=== PATIENT | female | born 1990 | race American Indian/Alaskan Native ===

== ENCOUNTER 2019-06-17 15:56 | Emergency (ER) | payer OTHER ==
--- NOTE | 2019-06-17 16:09 | Emergency Department Report ---
Blank Doc - Documentation Documentation: This is a 28-year-old female that presents with vaginal bleeding. This initial assessment/diagnostic orders/clinical plan/treatment(s) is/are subject to change based on patient's health status, clinical progression and re- assessment by fellow clinical providers in the ED. Further treatment and workup at subsequent clinical providers discretion. Patient/guardians urged not to elope from the ED as their condition may be serious if not clinically assessed and managed. Initial orders include: 1- Patient sent to [facility] for further evaluation and treatment 2- UA 3- labs
[2019-06-17 16:10] VITALS: BP 157/97
[2019-06-17 16:20] LABS: Hematocrit 38.1 % (30.3-42.9); Hemoglobin 13.3 gm/dl (10.1-14.3); Mean Corpuscular HGB Conc 35 % (30-34); Mean Corpuscular Volume 79 fl (79-97); Platelet Count 273 K/mm3 (140-440); Red Blood Count 4.82 M/mm3 (3.65-5.03)
[2019-06-17 16:29] LABS: Bilirubin,Urine NEG (Negative); Blood,Urine LG (Negative); Color,Urine Red (Yellow); Urobilinogen,Urine < 2.0 mg/dL (<2.0)
[2019-06-17 16:42] LABS: RBC,Urine > 182.0 /HPF (0.0-6.0)
--- NOTE | 2019-06-17 17:14 | Emergency Department Report ---
ED Female HPI - General Chief complaint: Urogenital-Female Stated complaint: POSS / BLEEDING CLOTS Time Seen by Provider: 06/17/19 16:08 Source: patient Mode of arrival: Ambulatory Limitations: No Limitations - History of Present Illness Initial comments: This is a 28-year-old female who presents to ED complaining of vaginal bleeding that started this morning. Patient states last menstrual period was April and she did not have a cycle in May. Patient also states that she had her nexplanon taken out in March. Complaint: vaginal bleeding - Related Data Previous Rx's Medication Instructions Recorded Last Taken Type Ibuprofen [Motrin 800 MG tab] 800 mg PO TID #30 tablet 06/17/19 Unknown Rx Allergies Allergy/AdvReac Type Severity Reaction Status Date / Time No Known Allergies Allergy Unverified 06/17/19 16:10 ED Review of Systems ROS: Stated complaint: POSS / BLEEDING CLOTS Other details as noted in HPI Comment: All other systems reviewed and negative ED Past Medical Hx - Social History Smoking Status: Never Smoker Substance Use Type: None - Medications Home Medications: Home Medications Medication Instructions Recorded Confirmed Last Taken Type Ibuprofen [Motrin 800 MG tab] 800 mg PO TID #30 tablet 06/17/19 Unknown Rx ED Physical Exam - General Limitations: No Limitations General appearance: alert, in no apparent distress - Head Head exam: Present: atraumatic, normocephalic - Eye Eye exam: Present: normal appearance - ENT ENT exam: Present: mucous membranes moist - Neck Neck exam: Present: normal inspection - Respiratory Respiratory exam: Present: normal lung sounds bilaterally. Absent: respiratory distress - Cardiovascular Cardiovascular Exam: Present: regular rate, normal rhythm. Absent: systolic murmur, diastolic murmur, rubs, gallop - GI/Abdominal GI/Abdominal exam: Present: soft, normal bowel sounds. Absent: distended, tenderness, guarding, mass - Extremities Exam Extremities exam: Present: normal inspection - Back Exam Back exam: Present: normal inspection - Neurological Exam Neurological exam: Present: alert, oriented X3 - Psychiatric Psychiatric exam: Present: normal affect, normal mood - Skin Skin exam: Present: warm, dry, intact, normal color. Absent: rash ED Course Vital Signs 06/17/19 06/17/19 06/17/19 16:08 18:08 18:34 Temperature 98 F Pulse Rate 80 Respiratory 20 16 16 Rate Blood Pressure 157/97 O2 Sat by Pulse 100 Oximetry ED Medical Decision Making - Lab Data Result diagrams: 06/17/19 16:11 Laboratory Last Values WBC 8.8 K/mm3 (4.5-11.0) 06/17/19 16:11 RBC 4.82 M/mm3 (3.65-5.03) 06/17/19 16:11 Hgb 13.3 gm/dl (10.1-14.3) 06/17/19 16:11 Hct 38.1 % (30.3-42.9) 06/17/19 16:11 MCV 79 fl (79-97) 06/17/19 16:11 MCH 28 pg (28-32) 06/17/19 16:11 MCHC 35 % (30-34) H 06/17/19 16:11 RDW 14.0 % (13.2-15.2) 06/17/19 16:11 Plt Count 273 K/mm3 (140-440) 06/17/19 16:11 Lymph # Yacht Hand 06/17/19 16:11 Add Manual Diff Complete 06/17/19 16:11 Total Counted 100 06/17/19 16:11 Seg Neuts % (Manual) 31.0 % (40.0-70.0) L 06/17/19 16:11 0 % 06/17/19 16:11 66.0 % (13.4-35.0) H 06/17/19 16:11 Reactive Lymphs % (Man) 0 % 06/17/19 16:11 3.0 % (0.0-7.3) 06/17/19 16:11 0 % (0.0-4.3) 06/17/19 16:11 0 % (0.0-1.8) 06/17/19 16:11 0 % 06/17/19 16:11 0 % 06/17/19 16:11 0 % 06/17/19 16:11 0 % 06/17/19 16:11 Nucleated RBC % Not Reportable 06/17/19 16:11 Seg Neutrophils # Man 2.7 K/mm3 (1.8-7.7) 06/17/19 16:11 Band Neutrophils # 0.0 K/mm3 06/17/19 16:11 5.8 K/mm3 (1.2-5.4) H 06/17/19 16:11 Abs React Lymphs (Man) 0.0 K/mm3 06/17/19 16:11 0.3 K/mm3 (0.0-0.8) 06/17/19 16:11 0.0 K/mm3 (0.0-0.4) 06/17/19 16:11 0.0 K/mm3 (0.0-0.1) 06/17/19 16:11 0.0 K/mm3 06/17/19 16:11 0.0 K/mm3 06/17/19 16:11 0.0 K/mm3 06/17/19 16:11 Blast Cells # 0.0 K/mm3 06/17/19 16:11 WBC Morphology Not Reportable 06/17/19 16:11 Hypersegmented Neuts Not Reportable 06/17/19 16:11 Hyposegmented Neuts Not Reportable 06/17/19 16:11 Hypogranular Neuts Not Reportable 06/17/19 16:11 Not Reportable 06/17/19 16:11 Not Reportable 06/17/19 16:11 Not Reportable 06/17/19 16:11 Not Reportable 06/17/19 16:11 Not Reportable 06/17/19 16:11 Not Reportable 06/17/19 16:11 Consistent w auto 06/17/19 16:11 Not Reportable 06/17/19 16:11 Plt Clumps, EDTA Not Reportable 06/17/19 16:11 Not Reportable 06/17/19 16:11 Not Reportable 06/17/19 16:11 Not Reportable 06/17/19 16:11 Plt Morphology Comment Not Reportable 06/17/19 16:11 RBC Morphology Not Reportable 06/17/19 16:11 Dimorphic RBCs Not Reportable 06/17/19 16:11 Not Reportable 06/17/19 16:11 Not Reportable 06/17/19 16:11 Not Reportable 06/17/19 16:11 1+ 06/17/19 16:11 1+ 06/17/19 16:11 Not Reportable 06/17/19 16:11 Not Reportable 06/17/19 16:11 Not Reportable 06/17/19 16:11 Not Reportable 06/17/19 16:11 Not Reportable 06/17/19 16:11 Not Reportable 06/17/19 16:11 Not Reportable 06/17/19 16:11 Not Reportable 06/17/19 16:11 Not Reportable 06/17/19 16:11 Not Reportable 06/17/19 16:11 Not Reportable 06/17/19 16:11 Not Reportable 06/17/19 16:11 Not Reportable 06/17/19 16:11 Not Reportable 06/17/19 16:11 Acanthocytes (Spur) Not Reportable 06/17/19 16:11 Rouleaux Not Reportable 06/17/19 16:11 Not Reportable 06/17/19 16:11 Not Reportable 06/17/19 16:11 Not Reportable 06/17/19 16:11 Not Reportable 06/17/19 16:11 Hem Pathologist Commnt No 06/17/19 16:11 HCG, Qual Negative (Negative) 06/17/19 16:11 Red (Yellow) 06/17/19 16:11 Cloudy (Clear) 06/17/19 16:11 6.0 (5.0-7.0) 06/17/19 16:11 Ur Specific [place] 1.019 (1.003-1.030) 06/17/19 16:11 100 mg/dl mg/dL (Negative) 06/17/19 16:11 Neg mg/dL (Negative) 06/17/19 16:11 Neg mg/dL (Negative) 06/17/19 16:11 Lg (Negative) 06/17/19 16:11 Neg (Negative) 06/17/19 16:11 Neg (Negative) 06/17/19 16:11 < 2.0 mg/dL (<2.0) 06/17/19 16:11 Ur Leukocyte Esterase Neg (Negative) 06/17/19 16:11 2.0 /HPF (0.0-6.0) 06/17/19 16:11 > 182.0 /HPF (0.0-6.0) 06/17/19 16:11 - Medical Decision Making This is a 28-year-old female who presents with menstrual cycle, menorrhagia. CBC within normal limits, all otherwise within normal limits. test was negative Discussed findings with the patient. Discussed with patient states nature; normal. Explained to patient that she was on control and sometimes after coming off of control she may have bleeding than usual. Discussed the patient to follow up with [facility] Discussed increased hydration throughout the day. Vital signs are normal patient is in no acute distress. Critical care attestation.: If time is entered above; I have spent that time in minutes in the direct care of this critically ill patient, excluding procedure time. ED Disposition Clinical Impression: Menorrhagia Disposition: - TO HOME OR SELFCARE Is pt being admited?: No Does the pt Need Aspirin: No Condition: Stable Instructions: Menorrhagia (ED) Additional Instructions: Make sure to follow up with the [facility] as discussed. Take all your medications as you've been prescribed. If you have any worsening symptoms or develop new symptoms please return to ED immediately. Prescriptions: Ibuprofen [Motrin 800 MG tab] 800 mg PO TID #30 tablet Referrals: [facility] [Provider Group] - 3-5 Days Forms: Work/School Release Form(ED) Time of Disposition: 18:15
[2019-06-17] MEDS ORDERED: IBUPROFEN PO ONE (17:46)
[2019-06-17 17:50] LABS: Basophils % (Manual) 0 % (0.0-1.8); Eosinophils % (Manual) 0 % (0.0-4.3); Total Cells Counted 100
[2019-06-17 17:53] LABS: Anisocytosis 1+; Platelet Estimate Consistent w Auto
== END 2019-06-17 18:31 | disposition home or self-care (01) ==
LOC: EDBD → ED 15:56
DX: N92.0 Excessive and frequent menstruation with regular cycle (principal); Z79.899 Other long term (current) drug therapy
CPT/HCPCS: 36415; 81001; 84703; 85007; 85025

== ENCOUNTER 2020-10-20 13:11 | Outpatient (CLI) | payer OTHER, BC ==
[2020-10-20 14:01] VITALS: BP 106/59
[2020-10-20 14:27] LABS: Bacteria,Urine 2+ /HPF (Negative); Bilirubin,Urine NEG (Negative); Blood,Urine NEG (Negative); Color,Urine Colorless (Yellow); Protein,Urine <15 mg/dL mg/dL (Negative); Urobilinogen,Urine < 2.0 mg/dL (<2.0)
[2020-10-20 14:32] LABS: RBC,Urine < 1.0 /HPF (0.0-6.0)
== END 2020-10-20 14:23 | disposition home or self-care (01) ==
LOC: TRG 13:11 → APU 13:13 → TRG 14:23
PROVIDERS: ATTEND Obstetrics & Gynecology
DX: O26.893 Other specified pregnancy related conditions, third trimester (principal); R10.9 Unspecified abdominal pain; Z3A.35 35 weeks gestation of pregnancy
CPT/HCPCS: 59025; 81001

== ENCOUNTER 2020-11-14 23:19 | Outpatient (CLI) | payer OTHER, BC ==
[2020-11-14 23:35] VITALS: BP 131/86
[2020-11-14] MEDS ORDERED: LACTATED RINGERS 1,000 ML IV ONE (23:46)
[2020-11-15 02:12] LABS: Bacteria,Urine 1+ /HPF (Negative); Bilirubin,Urine NEG (Negative); Blood,Urine NEG (Negative); Color,Urine Straw (Yellow); Mucus,Urine FEW /HPF; Protein,Urine <15 mg/dL mg/dL (Negative); Urobilinogen,Urine < 2.0 mg/dL (<2.0)
== END 2020-11-15 03:25 | disposition home or self-care (01) ==
LOC: TRG 23:19 → APU 23:31 → TRG 11-15 03:25
PROVIDERS: ATTEND Obstetrics & Gynecology
DX: O62.9 Abnormality of forces of labor, unspecified (principal); O99.513 Diseases of the respiratory system complicating pregnancy, third trimester; J45.909 Unspecified asthma, uncomplicated; O99.353 Diseases of the nervous system complicating pregnancy, third trimester; G43.909 Migraine, unspecified, not intractable, without status migrainosus; Z3A.36 36 weeks gestation of pregnancy
CPT/HCPCS: 59025; 81001; 96360; J7120

== ENCOUNTER 2020-12-13 10:21 | Inpatient (IN) | payer BC ==
--- NOTE | 2020-12-13 10:35 | Event Note ---
ED Screening Note ED Screening Note: c/o headache that began two days ago states she is also having pressure in the chest on 12/09/2020, Dr. Mcdonnell, denies any complications, full term states she feels dizziness and blurry PMHx has had HTN in the past, not on any medication states she did not have elevated BP during this +BLE edema no SOB no cough no fever no n/v/d no allergies to meds concerning for post preeclampsia This initial assessment/diagnostic orders/clinical plan/treatment(s) is/are subject to change based on patients health status, clinical progression and re- assessment by fellow clinical providers in the ED. Further treatment and workup at subsequent clinical providers discretion. Patient/guardian urged not to elope from the ED as their condition may be serious if not clinically assessed and managed. Initial orders include: orders initiated
[2020-12-13] MEDS ORDERED: KETOROLAC 30 MG/1 ML INJ IV ONE (10:53)
--- NOTE | 2020-12-13 10:56 | Emergency Department Report ---
ED Headache HPI - General Chief Complaint: OB/Uterine Contractions Stated Complaint: chest pains Time Seen by Provider: 12/13/20 10:31 - History of Present Illness Initial Comments: Patient is a 30-year-old F [place] female who is 3 days who is complaining of 2 days of chest discomfort as well as a headache. Patient had no elevation of her blood pressure during her or diagnosis of preeclampsia. Patient states chest discomfort is pressure-like sensation was estimated at a 4 out of 10 in severity. She initially thought that her breast may have been engorged however she has been pumping and having no change in the chest pressure. States is minimal shortness of breath. The discomfort is constant and is not worse with lying flat or exertion. There is no pleuritic component to the discomfort. Patient also states she has a headache which is estimated at 7 out of 10 in severity. This is a throbbing pain. She denies any nausea vomiting but does have some mild light sensitivity. On arrival blood pressure was elevated. Allergies/Adverse Reactions: Allergies No Known Allergies Allergy (Unverified 06/17/19 16:10) Home Medications: Ambulatory Orders Ibuprofen [Motrin 800 MG tab] 800 mg PO TID #30 tablet 06/17/19 Docusate Sodium [Colace] 100 mg PO BID PRN #60 capsule 12/09/20 Ferrous Sulfate [Feosol 325 MG tab] 325 mg PO QDAY #60 tablet 12/09/20 Ibuprofen [Motrin 800 MG tab] 800 mg PO Q8HR PRN #30 tablet 12/09/20 Lidocain2.5%/Prilocai2.5% [Emla] 2 gm TP ONCE #1 tube 12/09/20 oxyCODONE /ACETAMINOPHEN [Percocet 5/325] 1 tab PO Q4HR #30 tab 12/09/20 ED Review of Systems ROS: Stated complaint: chest pains Other details as noted in HPI Comment: All other systems reviewed and negative ED Past Medical Hx - Past Medical History Previous Medical History?: Yes Hx Hypertension: No Hx Congestive Heart Failure: No Hx Diabetes: No Hx Deep Vein Thrombosis: No Hx Renal Disease: No Hx Sickle Cell Disease: No Hx Seizures: No Hx Asthma: Yes (last attack 04/2020) Hx COPD: No Hx HIV: No - Surgical History Past Surgical History?: Yes Additional Surgical History: x1 - Social History Smoking Status: Never Smoker Substance Use Type: None - Medications Home Medications: Home Medications Medication Instructions Recorded Confirmed Last Taken Type Ibuprofen [Motrin 800 MG tab] 800 mg PO TID #30 tablet 06/17/19 12/11/20 12/08/20 Rx Docusate Sodium [Colace] 100 mg PO BID PRN #60 capsule 12/09/20 Unknown Rx Ferrous Sulfate [Feosol 325 MG tab] 325 mg PO QDAY #60 tablet 12/09/20 Unknown Rx Ibuprofen [Motrin 800 MG tab] 800 mg PO Q8HR PRN #30 tablet 12/09/20 Unknown Rx Lidocain2.5%/Prilocai2.5% [Emla] 2 gm TP ONCE #1 tube 12/09/20 Unknown Rx oxyCODONE /ACETAMINOPHEN [Percocet 1 tab PO Q4HR #30 tab 12/09/20 Unknown Rx 5/325] ED Physical Exam - General Limitations: No Limitations General appearance: alert, in no apparent distress - Head Head exam: Present: atraumatic, normocephalic - Eye Eye exam: Present: normal appearance - ENT ENT exam: Present: mucous membranes moist - Neck Neck exam: Present: normal inspection - Respiratory Respiratory exam: Present: normal lung sounds bilaterally. Absent: respiratory distress, wheezes, rales, rhonchi - Cardiovascular Cardiovascular Exam: Present: regular rate, normal rhythm. Absent: normal heart sounds, systolic murmur, diastolic murmur, rubs, gallop - GI/Abdominal GI/Abdominal exam: Present: soft, tenderness (Lower abdominal tenderness which is mild.), normal bowel sounds. Absent: distended, guarding, rebound - Extremities Exam Extremities exam: Present: normal inspection, pedal edema - Back Exam Back exam: Present: normal inspection - Neurological Exam Neurological exam: Present: alert, oriented X3 - Psychiatric Psychiatric exam: Present: normal affect, normal mood - Skin Skin exam: Present: warm, dry, intact, normal color. Absent: rash ED Course Vital Signs 12/13/20 12/13/20 12/13/20 10:27 11:03 11:25 Temperature 98.9 F Pulse Rate 70 63 Respiratory 20 19 Rate Blood Pressure 167/87 168/79 O2 Sat by Pulse 99 99 100 Oximetry 12/13/20 12/13/20 12/13/20 11:36 11:41 11:45 Temperature Pulse Rate 58 L Respiratory 16 16 17 Rate Blood Pressure 168/79 O2 Sat by Pulse 98 Oximetry 12/13/20 12/13/20 12:19 12:31 Temperature Pulse Rate 55 L 51 L Respiratory 19 Rate Blood Pressure 168/84 168/84 O2 Sat by Pulse 98 Oximetry ED Medical Decision Making - Lab Data Result diagrams: 12/13/20 10:59 12/13/20 10:59 Lab Results 12/13/20 12/13/20 12/13/20 Range/Units 10:59 10:59 Unknown WBC 8.7 (4.5-11.0) K/mm3 RBC 4.14 (3.65-5.03) M/mm3 Hgb 11.5 (10.1-14.3) gm/dl Hct 33.4 (30.3-42.9) % MCV 81 (79-97) fl MCH 28 (28-32) pg MCHC 35 H (30-34) % RDW 15.2 (13.2-15.2) % Plt Count 268 (140-440) K/mm3 Lymph % (Auto) 33.4 (13.4-35.0) % [place] % (Auto) 5.9 (0.0-7.3) % Eos % (Auto) 1.4 (0.0-4.3) % Baso % (Auto) 1.1 (0.0-1.8) % Lymph # (Auto) 2.9 (1.2-5.4) K/mm3 [place] # (Auto) 0.5 (0.0-0.8) K/mm3 Eos # (Auto) 0.1 (0.0-0.4) K/mm3 Baso # (Auto) 0.1 (0.0-0.1) K/mm3 Seg Neutrophils % 58.2 (40.0-70.0) % Seg Neutrophils # 5.1 (1.8-7.7) K/mm3 Sodium 139 (137-145) mmol/L Potassium 4.0 (3.6-5.0) mmol/L Chloride 106.0 (98-107) mmol/L Carbon Dioxide 26 (22-30) mmol/L Anion Gap 11 mmol/L BUN 8 (7-17) mg/dL Creatinine 0.6 (0.6-1.2) mg/dL Estimated GFR > 60 ml/min BUN/Creatinine Ratio 13 % Glucose 95 (65-100) mg/dL Calcium 8.5 (8.4-10.2) mg/dL Total Bilirubin 0.20 (0.1-1.2) mg/dL AST 21 (5-40) units/L ALT 32 (7-56) units/L Alkaline Phosphatase 94 (35-129) units/L Troponin T < 0.010 (0.00-0.029) ng/mL NT-Pro-B Natriuret Pep 282.1 (0-450) pg/mL Total Protein 6.4 (6.3-8.2) g/dL Albumin 3.4 L (3.9-5) g/dL Albumin/Globulin Ratio 1.1 % Urine Color Yellow (Yellow) Urine Turbidity Clear (Clear) Urine pH 7.0 (5.0-7.0) Ur Specific [place] 1.013 (1.003-1.030) Urine Protein <15 mg/dl (Negative) mg/dL Urine Glucose (UA) Neg (Negative) mg/dL Urine Ketones Neg (Negative) mg/dL Urine Blood Neg (Negative) Urine Nitrite Neg (Negative) Urine Bilirubin Neg (Negative) Urine Urobilinogen < 2.0 (<2.0) mg/dL Ur Leukocyte Esterase Neg (Negative) Urine WBC (Auto) < 1.0 (0.0-6.0) /HPF Urine RBC (Auto) 1.0 (0.0-6.0) /HPF U Epithel Cells (Auto) 1.0 (0-13.0) /HPF - EKG Data -: EKG Interpreted by Ri EKG shows normal: sinus rhythm, axis, intervals, QRS complexes, ST-T waves Rate: normal - EKG Data Interpretation: normal EKG - Radiology Data CHEST 2 VIEWS INDICATION / CLINICAL INFORMATION: CP. Chest pain FINDINGS: SUPPORT DEVICES: None. HEART / MEDIASTINUM: No significant abnormality. LUNGS / PLEURA: No significant pulmonary or pleural abnormality. No pneumothorax. ADDITIONAL FINDINGS: No significant additional findings. IMPRESSION: 1. No acute findings. Signer Name: Anoop Barrios MD Signed: 12/13/2020 10:38 AM Workstation Name: [id number] Reporting MD: Mahnaz Salazar Dictation Time: December 13, 2020 11:11 Treating Engineer Helper: Not available User Interface Designer Date: CT head/brain wo con INDICATION / CLINICAL INFORMATION: headache, post elevated BP. TECHNIQUE: Axial CT imaging of the brain was obtained without contrast. Coronal and sagittal reformatted imaging obtained and reviewed. All CT scans at this loc ation are performed using CT dose reduction for ALARA by means of automated exposure control. COMPARISON: None available. FINDINGS: No intracranial hemorrhage, mass, or midline shift noted. No extra- axial fluid collection or suggestion of acute territorial infarction. Ventricular system and basilar cisterns are unremarkable. There is mucosal thickening throughout the ethmoid air cells, frontal sinuses, and sphenoid sinuses bilaterally. No air-fluid levels.. No calvarial abnormality . IMPRESSION: 1. Mucosal thickening is present throughout many of the paranasal sinuses. 2. No acute intracranial abnormality otherwise. Signer Name: Mahnaz Salazar MD Signed: 12/13/2020 11:11 AM Workstation Name: [id number] CTA CHEST WITH IV CONTRAST INDICATION / CLINICAL INFORMATION: chest pain. TECHNIQUE: Axial CT images were obtained through the chest after injection of 100 mL IV contrast. 3 plane MIP and/or 3D reconstructions were produced. All CT scans at this location are performed using CT dose reduction for ALARA by means of automated exposure control. COMPARISON: Chest radiographs performed earlier today. FINDINGS: PULMONARY ARTERIES: No pulmonary emboli. THORACIC AORTA: No significant abnormality. HEART: No significant abnormality. CORONARY ARTERIES: No significant calcification. PLEURA: No pleural effusion. No pneumothorax. L YMPH NODES: No significant adenopathy. LUNGS: No acute air space or interstitial disease. ADDITIONAL FINDINGS: The breast parenchyma is engorged bilaterally consistent with status. UPPER ABDOMEN: No acute findings. SKELETAL STRUCTURES: No significant osseous abnormality. IMPRESSION: 1. No CT evidence for pulmonary thromboembolism. (Please note that amniotic fluid embolism cannot be identified on imaging). 2. Both lungs are clear. Signer Name: Mahnaz Salazar MD Signed: 12/13/2020 11:18 AM Workstation Name: [id number] - Medical Decision Making Patient's blood pressure was elevated on her arrival. Because of the bradycardia beta-blockers were given. She was given 0.1 of [place] and will continue to monitor her blood pressure. Patient has been ruled out for pulmonary embolus acute SD pneumonia. There is no protein in her urine but this does not exclude her from being preeclamptic. She received 4 g of magnesium. She will be admitted to the [facility] service at labor and delivery. Critical care attestation.: If time is entered above; I have spent that time in minutes in the direct care of this critically ill patient, excluding procedure time. ED Disposition Clinical Impression: essential hypertension during , delivered Disposition: OP ADMIT IP TO THIS HOSP Is pt being admited?: Yes Does the pt Need Aspirin: No Condition: Stable Instructions: Hypertension (ED) Time of Disposition: 13:08
[2020-12-13 11:12] LABS: Basophils # (Auto) 0.1 K/mm3 (0.0-0.1); Basophils % (Auto) 1.1 % (0.0-1.8); Eosinophils # (Auto) 0.1 K/mm3 (0.0-0.4); Eosinophils % (Auto) 1.4 % (0.0-4.3); Hematocrit 33.4 % (30.3-42.9); Hemoglobin 11.5 gm/dl (10.1-14.3); Lymphocytes # (Auto) 2.9 K/mm3 (1.2-5.4); Lymphocytes % (Auto) 33.4 % (13.4-35.0); Mean Corpuscular HGB Conc 35 % (30-34); Mean Corpuscular Volume 81 fl (79-97); Monocytes # (Auto) 0.5 K/mm3 (0.0-0.8); Monocytes % (Auto) 5.9 % (0.0-7.3); Platelet Count 268 K/mm3 (140-440); Red Blood Count 4.14 M/mm3 (3.65-5.03); Red Cell Distribution Width 15.2 % (13.2-15.2)
[2020-12-13 11:18] LABS: Bilirubin,Urine NEG (Negative); Blood,Urine NEG (Negative); Color,Urine Yellow (Yellow); Protein,Urine <15 mg/dL mg/dL (Negative); Urobilinogen,Urine < 2.0 mg/dL (<2.0); WBC,Urine < 1.0 /HPF (0.0-6.0)
[2020-12-13 11:34] LABS: Alanine Aminotransferase 32 units/L (7-56); Albumin 3.4 g/dL (3.9-5); Blood Urea Nitrogen 8 mg/dL (7-17); Calcium 8.5 mg/dL (8.4-10.2); Hemolysis Index 2
[2020-12-13 11:35] LABS: BUN/Creatinine Ratio 13
--- NOTE | 2020-12-13 11:43 | XRay Report ---
CHEST 2 VIEWS INDICATION / CLINICAL INFORMATION: CP. Chest pain FINDINGS: SUPPORT DEVICES: None. HEART / MEDIASTINUM: No significant abnormality. LUNGS / PLEURA: No significant pulmonary or pleural abnormality. No pneumothorax. ADDITIONAL FINDINGS: No significant additional findings. IMPRESSION: 1. No acute findings. Signer Name: Anoop Barrios MD Signed: 12/13/2020 11:38 AM Workstation Name: [id number]
[2020-12-13] MEDS ORDERED: oxyCODONE /ACETAMINOPHEN 5-325MG TAB PO ONE (11:45)
[2020-12-13] MEDS ORDERED: METOPROLOL TARTRATE 50 MG TAB PO ONE (11:46)
[2020-12-13] MEDS ORDERED: MAGNESIUM SULFATE 4 GM/100 ML BAG IV ONE (12:00)
[2020-12-13] MEDS ORDERED: cloNIDine 0.1 MG TAB PO ONE (12:11)
--- NOTE | 2020-12-13 12:15 | Cat Scan Report ---
CT head/brain wo con INDICATION / CLINICAL INFORMATION: headache, post elevated BP. TECHNIQUE: Axial CT imaging of the brain was obtained without contrast. Coronal and sagittal reformatted imaging obtained and reviewed. All CT scans at this location are performed using CT dose reduction for JANICE Garcia by means of automated exposure control. COMPARISON: None available. FINDINGS: No intracranial hemorrhage, mass, or midline shift noted. No extra-axial fluid collection or suggesti on of acute territorial infarction. Ventricular system and basilar cisterns are unremarkable. There is mucosal thickening throughout the ethmoid air cells, frontal sinuses, and sphenoid sinuses b ilaterally. No air-fluid levels.. No calvarial abnormality. IMPRESSION: 1. Mucosal thickening is present throughout many of the paranasal sinuses. 2. No acute intracranial abnormality otherwise. Signer Name: Mahnaz Salazar MD Signed: 12/13/2020 12:11 PM Workstation Name: [id number]
--- NOTE | 2020-12-13 12:22 | Cat Scan Report ---
CTA CHEST WITH IV CONTRAST INDICATION / CLINICAL INFORMATION: chest pain. TECHNIQUE: Axial CT images were obtained through the chest after injection of 100 mL IV contrast. 3 plane MIP an d/or 3D reconstructions were produced. All CT scans at this location are performed using CT dose redu ction for [facility] by means of automated exposure control. COMPARISON: Chest radiographs performed earlier today. FINDINGS: PULMONARY ARTERIES: No pulmonary emboli. THORACIC AORTA: No significant abnormality. HEART: No significant abnormality. CORONARY ARTERIES: No significant calcification. PLEURA: No pleural effusion. No pneumothorax. LYMPH NODES: No significant adenopathy. LUNGS: No acute air space or interstitial disease. ADDITIONAL FINDINGS: The breast parenchyma is engorged bilaterally consistent with status. UPPER ABDOMEN: No acute findings. SKELETAL STRUCTURES: No significant osseous abnormality. IMPRESSION: 1. No CT evidence for pulmonary thromboembolism. (Please note that amniotic fluid embolism cannot be identified on imaging). 2. Both lungs are clear. Signer Name: Mahnaz Salazar MD Signed: 12/13/2020 12:18 PM Workstation Name: [id number]
[2020-12-13] MEDS ORDERED: ACETAMINOPHEN 325 MG TAB PO PRN (13:26)
[2020-12-13] MEDS ORDERED: LACTATED RINGERS 1,000 ML IV SCH (13:30)
--- NOTE | 2020-12-13 13:49 | History and Physical Report ---
History of Present Illness Date of examination: 12/13/20 (PP PreE admit MGSO4 Stabilize BP) Chief complaint: Pt called with c/o worsening swelling and MAYO Instructed to come to ED for eval for PreE History of present illness: Pt is s/p section 12/09/20 Was d/c home 12-11-20 Pt called today with c/o MAYO, swelling Sent to ED. Elevated BP, MGSO4 bolus given, CXR and CT wnl No evidence pneumonia, PE, chest congestion. Information below prior to this most recent delivery which was a repeat c/s with salpingectomy on 12/09/20. EDC Confirmation: 12/16/2020 Gestational Age: 7 3/7 weeks Past History : 2 Term Births: 1 Premature Births: 0 Living Children: 1 Para: 1 Mult. Births: 0 Prev : 1 Aborta: 0 Elect. Ab: 0 Spont. Ab: 0 Ectopics: 0 # 1 Delivery date: 2012 Weeks Gestation: 40 Delivery type: Delivery location: [place] Infant Sex: Male weight: 6-7 Comments: malpresentation, "arms first", no antepartum complications Risk Factors: Smoked Tobacco Use: Never smoker Smokeless Tobacco Use: Never Passive smoke exposure: no Drug use: no Alcohol use: no Past Medical History: Reviewed history from 03/19/2020 and no changes required: Asthma Headaches(Migraines - with auras) states she was given HCTZ for migranes when she went to ED however her BP was elevated Past Surgical History: Reviewed history from 05/05/2017 and no changes required: positive Past Medical History 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 Genetic History Congenital Heart Defect: Mom: no Dad: no Kiara Disease: Mom: no Dad: no Thalassemia Mom: no Dad: no Neural Tube Defect Mom: no Dad: no Down's Syndrome Mom: no Dad: no Nicholas-Sachs Mom: no Dad: no Sickle Cell Disease/Trait Mom: no Dad: no Hemophilia Mom: no Dad: no Muscular Dystrophy Mom: no Dad: no Cystic Fibrosis Mom: no Dad: no [place] Chorea Mom: no Dad: no Mental Retardation Mom: no Dad: no Fragile X Mom: no Dad: no Other Genetic/Chromosomal Disorder Mom: no Dad: no Child w/other defect Mom: no Dad: no Enviromental Exposures Xray Exposure: no Medication, drug, or alcohol use since LMP: no Chemical/Other Exposure: no Exposure to Cat Liter: no Hx of Parvovirus (Fifth Disease): no Occupational Exposure to Children: none FALSECurrent Allergies: No known allergies Past History Past Medical History: hypertension, migraines DOCK LOADER History: herpes - Obstetrical History : 2 Para: 2 (c/s X 2) Hx # Term Pregnancies: 2 Spontaneous Abortions: 0 Induced : 0 Number of Living Children: 2 Medications and Allergies Allergies Allergy/AdvReac Type Severity Reaction Status Date / Time No Known Allergies Allergy Unverified 06/17/19 16:10 Home Medications Medication Instructions Recorded Confirmed Last Taken Type Ibuprofen [Motrin 800 MG tab] 800 mg PO TID #30 tablet 06/17/19 12/11/20 12/08/20 Rx Docusate Sodium [Colace] 100 mg PO BID PRN #60 capsule 12/09/20 Unknown Rx Ferrous Sulfate [Feosol 325 MG tab] 325 mg PO QDAY #60 tablet 12/09/20 Unknown Rx Ibuprofen [Motrin 800 MG tab] 800 mg PO Q8HR PRN #30 tablet 12/09/20 Unknown Rx Lidocain2.5%/Prilocai2.5% [Emla] 2 gm TP ONCE #1 tube 12/09/20 Unknown Rx oxyCODONE /ACETAMINOPHEN [Percocet 1 tab PO Q4HR #30 tab 12/09/20 Unknown Rx 5/325] Active Meds: Active Medications Acetaminophen (Acetaminophen 325 Mg Tab) 650 mg PO Q4H PRN PRN Reason: Pain MILD(1-3)/Fever >100.5/MAYO Docusate Sodium (Docusate Sodium 100 Mg Cap) 100 mg PO Q12H PRN PRN Reason: Constipation Lactated Ringer's (Lactated Ringers) 1,000 mls @ 125 mls/hr IV DIRECT JANICE Magnesium Sulfate (Magnesium Sulfate 40gm/1000ml) 40 gm in 1,000 mls @ 50 mls/hr IV DIRECT JANICE Multivitamins/Iron/Calcium ( Lqq51-Ls Fumarate-Folic Acid Vit Tab) 1 each PO QDAY JANICE Review of Systems All systems: negative - Vital Signs Vital signs: Vital Signs Temp Pulse Resp BP Pulse Ox 98.9 F 70 20 167/87 99 12/13/20 10:27 12/13/20 10:27 12/13/20 10:27 12/13/20 10:27 12/13/20 10:27 Temp Pulse Resp BP Pulse Ox 98.9 F 54 L 15 153/84 89 12/13/20 10:27 12/13/20 13:41 12/13/20 13:41 12/13/20 13:41 12/13/20 13:41 - Physical Exam Breasts: Positive: normal (pumping) Cardiovascular: Regular rate, Normal S1, Normal S2 Abdomen: Positive: normal appearance, soft, normal bowel sounds. Negative: distention, tenderness Vulva: both: normal Vagina: Positive: normal moisture. Negative: discharge Cervix: Negative: lesion, discharge Uterus: Positive: normal size, normal contour Adnexa: both: normal Anus/Rectum: Positive: normal perianal skin, heme negative. Negative: rectal mass, hemorrhoids Extremities: Positive: edema Deep Tendon Reflex Grade: Normal but brisk +3 Results Result Diagrams: 12/13/20 10:59 12/13/20 10:59 Abnormal lab results 12/13/20 12/13/20 Range/Units 10:59 10:59 MCHC 35 H (30-34) % Albumin 3.4 L (3.9-5) g/dL All other labs normal. Assessment and Plan - Patient Problems (1) Pre-eclampsia, Onset Date: ~12/13/20 Current Visit: Yes Status: Acute Plan to address problem: pt transferred to L&D from ED PP PreE Will complete 24hr MGSO4 @ 2gm/hr Start Labetalol 200mg PO BID Dr Mack aware of admission (2) Essential (primary) hypertension Onset Date: ~12/13/20 Current Visit: Yes Status: Acute Plan to address problem: Labetalol 200mg PO BID (3) Herpes genitalis Onset Date: ~12/13/20 Current Visit: Yes Status: Acute Qualifiers: Herpes simplex infection site: cervicitis Qualified Code(s): A60.03 - Herpesviral cervicitis Plan to address problem: Will continue Valacyclovir 1gm QD (4) COVID-19 Onset Date: ~12/08/20 Current Visit: Yes Status: Acute Plan to address problem: Pt had tested + for Covid 19 on 12/08/20 Will treat as Covid+ pt while in L&D
[2020-12-13] MEDS ORDERED: MAGNESIUM SULFATE 40GM/1000ML 40 GM/1,000 ML BAG IV SCH (14:00)
[2020-12-13] MEDS ORDERED: hydrALAZINE 20 MG/1 ML INJ IV PRN (14:46)
[2020-12-13] MEDS: ACETAMINOPHEN 500 MG TAB PO PRN (19:53)
[2020-12-14] MEDS ORDERED: LACTATED RINGERS 1,000 ML ONE (06:22)
[2020-12-14] MEDS: oxyCODONE /ACETAMINOPHEN 5-325MG TAB PO PRN ×2 (06:32→17:38)
--- NOTE | 2020-12-14 08:45 | Progress Note ---
Assessment and Plan Continue POC Consult with Dr Mack. Pt aware poss d/c tomorrow if stable All questions addressed - Patient Problems (1) Pre-eclampsia, Onset Date: ~12/13/20 Current Visit: Yes Status: Acute Plan to address problem: MGSO4 continues Will complete @ 1400 today BP 140-120/80-60. Labetalol 200mg po BID (2) COVID-19 Onset Date: ~12/08/20 Current Visit: Yes Status: Acute Plan to address problem: PPE worn when in pt room. Pt w/o cough, fever, loss of taste or smell Subjective - Subjective Date of service: 12/14/20 (states she has had MAYO and abdominal pain) Principal diagnosis: 6 day s/p repeat c/s PP PreE MGSO4 Interval history: Pt is s/p section 12/09/20 Was d/c home 12-11-20 Pt called today with c/o MAYO, swelling Sent to ED. Elevated BP, MGSO4 bolus given, CXR and CT wnl No evidence pneumonia, PE, chest congestion. Information below prior to this most recent delivery which was a repeat c/s with salpingectomy on 12/09/20. EDC Confirmation: 12/16/2020 Gestational Age: 7 3/7 weeks Past History : 2 Term Births: 1 Premature Births: 0 Living Children: 1 Para: 1 Mult. Births: 0 Prev : 1 Aborta: 0 Elect. Ab: 0 Spont. Ab: 0 Ectopics: 0 # 1 Delivery date: 2012 Weeks Gestation: 40 Delivery type: Delivery location: [place] Sex: Male weight: 6-7 Comments: malpresentation, "arms first", no antepartum complications Risk Factors: Smoked Tobacco Use: Never smoker Smokeless Tobacco Use: Never Passive smoke exposure: no Drug use: no Alcohol use: no Past Medical History: Reviewed history from 03/19/2020 and no changes required: Asthma Headaches(Migraines - with auras) states she was given HCTZ for migranes when she went to ED however her BP was elevated Past Surgical History: Reviewed history from 05/05/2017 and no changes required: positive Past Medical History 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 Genetic History Congenital Heart Defect: Mom: no Dad: no Kiara Disease: Mom: no Dad: no Thalassemia Mom: no Dad: no Neural Tube Defect Mom: no Dad: no Down's Syndrome Mom: no Dad: no Nicholas-Sachs Mom: no Dad: no Sickle Cell Disease/Trait Mom: no Dad: no Hemophilia Mom: no Dad: no Muscular Dystrophy Mom: no Dad: no Cystic Fibrosis Mom: no Dad: no Sloane Chorea Mom: no Dad: no Mental Retardation Mom: no Dad: no Fragile X Mom: no Dad: no Other Genetic/Chromosomal Disorder Mom: no Dad: no Child w/other defect Mom: no Dad: no Enviromental Exposures Xray Exposure: no Medication, drug, or alcohol use since LMP: no Chemical/Other Exposure: no Exposure to Cat Liter: no Hx of Parvovirus (Fifth Disease): no Occupational Exposure to Children: none FALSECurrent Allergies: No known allergies Patient reports: appetite normal, voiding normally [place]: other (home with family) Objective - Vital Signs Latest vital signs: Vital Signs Temp Pulse Resp BP BP Pulse Ox 12/14/20 08:35 74 140/87 12/14/20 08:05 62 121/68 12/14/20 07:36 70 132/69 12/14/20 07:05 67 141/60 12/14/20 06:36 70 136/63 12/14/20 06:07 98.2 F 18 12/14/20 06:06 71 137/71 12/14/20 05:35 65 130/71 12/14/20 05:06 61 122/60 12/14/20 04:35 58 L 120/68 12/14/20 04:05 62 124/67 12/14/20 03:35 67 131/76 12/14/20 03:06 70 127/71 12/14/20 02:44 97.7 F 16 12/14/20 02:36 67 119/68 12/14/20 02:06 66 134/78 12/14/20 01:36 76 133/81 12/14/20 01:05 80 137/76 12/14/20 00:35 65 131/73 12/14/20 00:05 68 135/73 12/13/20 23:36 78 137/88 12/13/20 23:06 65 139/71 12/13/20 22:35 64 139/84 12/13/20 22:19 68 131/70 12/13/20 22:18 68 131/70 12/13/20 21:36 61 108/63 12/13/20 21:06 59 L 127/65 12/13/20 20:05 63 127/73 12/13/20 19:45 98.1 F 18 12/13/20 19:35 63 132/74 12/13/20 19:06 73 126/65 12/13/20 18:05 71 135/75 12/13/20 17:36 71 140/71 12/13/20 17:06 72 141/74 12/13/20 16:36 98.5 F 68 18 143/63 97 12/13/20 16:35 77 132/66 12/13/20 16:21 68 143/68 12/13/20 16:06 66 132/67 12/13/20 15:35 63 133/70 12/13/20 15:24 66 144/73 12/13/20 15:06 64 161/76 12/13/20 15:03 56 L 170/81 12/13/20 14:57 56 L 170/81 12/13/20 14:37 59 L 166/90 12/13/20 14:33 57 L 166/90 12/13/20 14:30 98.5 F 57 L 18 166/90 97 12/13/20 13:41 54 L 15 153/84 89 12/13/20 13:01 67 13 171/98 97 12/13/20 12:45 63 14 177/91 99 12/13/20 12:31 51 L 19 168/84 98 12/13/20 12:19 55 L 168/84 12/13/20 11:45 58 L 17 168/79 98 12/13/20 11:41 16 12/13/20 11:36 16 12/13/20 11:25 168/79 100 12/13/20 11:03 63 19 99 12/13/20 10:27 98.9 F 70 20 167/87 99 Intake and Output 12/13/20 12/14/20 12/14/20 22:59 06:59 14:59 Output Total 800 900 Balance -800 -900 Output: Urine 800 900 Indwelling Catheter 600 900 Uretheral (Kelley) 200 Other: Total, Output Amount 600 900 - Exam Breasts: Present: normal (pumping) Cardiovascular: Present: Regular rate Lungs: Present: Clear to auscultation Abdomen: Present: normal appearance, soft, normal bowel sounds Uterus: Present: normal, fundal height below umbilicus Extremities: Present: normal Incision: Present: normal, dry, intact - Labs Labs: Abnormal lab results 12/13/20 12/13/20 12/13/20 Range/Units 10:59 10:59 22:50 MCHC 35 H (30-34) % Magnesium 4.70 H (1.7-2.3) mg/dL Albumin 3.4 L (3.9-5) g/dL 12/14/20 Range/Units 04:04 MCHC (30-34) % Magnesium 4.50 H (1.7-2.3) mg/dL Albumin (3.9-5) g/dL
[2020-12-14] MEDS: DOCUSATE SODIUM 100 MG CAP PO PRN (10:58)
[2020-12-14] MEDS: PRENATAL VIT27-FE FUMARATE-FOLIC ACID VIT TAB PO SCH (10:59)
[2020-12-14] MEDS: IBUPROFEN 800 MG TAB PO PRN (10:59)
--- NOTE | 2020-12-14 12:34 | Event Note ---
Date: 12/14/20 (spoke with MORGAN Agarwal) Last BP pt talking on phone and pumping will check next BP to monitor for any rise. Pt w/o complaint. MGSO4 due off @ 1400. Will transfer to M/B 1 hour after that.
[2020-12-15] MEDS: IBUPROFEN 800 MG TAB PO PRN (06:34)
[2020-12-15] MEDS: DOCUSATE SODIUM 100 MG CAP PO PRN ×2 (06:34→19:37)
[2020-12-15] MEDS: PRENATAL VIT27-FE FUMARATE-FOLIC ACID VIT TAB PO SCH (10:07)
--- NOTE | 2020-12-15 13:45 | Progress Note ---
Assessment and Plan A: 30 y.o. s/p POD #7. Pre eclampsia, s/p mag infusion. Still with some elevated BP's. P: Add Procardia 30 mg PO daily. Will re-evaluate for discharge home on 12/16. Subjective - Subjective Date of service: 12/15/20 (Pt has strong desire to go home.) Principal diagnosis: 7 day s/p repeat c/s PP PreE MGSO4 Patient reports: appetite normal, voiding normally, pain well controlled, flatus, bowel movement, ambulating normally : doing well Objective - Vital Signs Latest vital signs: Vital Signs Temp Pulse Resp BP BP Pulse Ox 12/15/20 12:07 98.7 F 55 L 20 151/71 98 12/15/20 08:05 98.5 F 53 L 18 133/65 99 12/15/20 06:34 16 12/15/20 06:25 98.1 F 67 18 152/82 97 12/15/20 00:10 98 F 86 16 148/80 12/14/20 21:39 86 153/90 12/14/20 15:28 98.2 F 71 18 131/78 96 12/14/20 14:05 71 121/62 12/14/20 13:59 98.1 F 73 18 132/63 132/63 Intake and Output 12/14/20 12/15/20 12/15/20 22:59 06:59 14:59 Intake Total 480 840 Output Total 250 400 Balance -250 80 840 Intake: Oral 360 Intake, Free Water 480 480 Output: Urine 250 400 Void 250 400 Other: Total, Intake Amount 240 Total, Output Amount 250 400 # Voids Void 1 2 2 # Bowel Movements 1 - Exam Narrative Exam: Pt has a strong desire to go home. Pt denies MAYO, blurred vision, spots before her eyes, chest pain, shortness of breath, and upper abdominal pain. Blood pressure ranges charted have been 130-150's/60-80's. Upon entering room, blood pressure machine was still there. Saw some blood pressure readings that were 160's/90's and one that was 180'/90's. Spoke with RN regarding blood pressures and they will be recorded in chart. Consulted with Dr. Mcdonnell regarding blood pressures. Will have some difficulty increasing Labetalol d/t pulse being recorded at 55. Will add Procardia 30mg daily. Pt aware of medication being added and that she can not go home at this time. Will re-evaluate for home in the AM on 12/16. Breasts: Present: deferred Cardiovascular: Present: Regular rate Lungs: Present: Normal air movement Abdomen: Present: normal appearance, soft Vulva: both: normal Uterus: Present: normal Extremities: Present: normal Deep Tendon Reflex Grade: Normal +2 Incision: Present: normal, dry, intact
[2020-12-15] MEDS ORDERED: NIFEdipine XL 30 MG TAB PO SCH (14:00)
--- NOTE | 2020-12-15 15:18 | Event Note ---
Date: 12/15/20 Patient Financial Specialist called by nursing staff and pt c/o having chest pain and abdominal pain about 50 minutes after the procardia. Provider called back to get an update. Pulse was 67 and bp was 160s/90s at time of c/o. Pt did not show signs of distress. Pt repeat covid testing in house is negative and she is being taken off isolation at this time. Will obtain EKG and cardiac enzymes at this time. Also will order pepcid. Provider in route to see pt at this time.
--- NOTE | 2020-12-15 16:11 | Event Note ---
Date: 12/15/20 EKG shows sinus bradycardia otherwise normal. Consult placed to cardiology for aid in bp control with the bradycardia. Will con't to closely monitor and await recommendations by Cardiology Team.
[2020-12-15 16:29] LABS: Creatine Kinase MB 2.4 ng/mL (0.0-4.0)
--- NOTE | 2020-12-15 16:31 | Event Note ---
Date: 12/15/20 Cardiology consultation attempted - pt in shower. Anti-hypertensive regimen adjusted. Will return for full cardiology consultation in AM. Ehsan SKELTON NP / DR. MAKI
[2020-12-15] MEDS: FAMOTIDINE 20 MG TAB PO SCH ×2 (16:40→22:29)
[2020-12-15] MEDS ORDERED: NIFEdipine XL 60 MG TAB PO ONE (18:45)
[2020-12-15] MEDS: NIFEdipine XL 90 MG TAB PO SCH (19:09)
[2020-12-15] MEDS: hydrALAZINE 25 MG TAB PO SCH (22:30)
[2020-12-16] MEDS: ACETAMINOPHEN 500 MG TAB PO PRN ×3 (00:17→21:23)
--- NOTE | 2020-12-16 08:30 | Progress Note ---
Assessment and Plan A: 30 y.o. s/p rpt , POD #7. C/o MAYO. Cardiology consult ordered. P: Maisha PO ordered for possible sinus congestion. Awaiting cardiology recommendations. Discharge home this afternoon if cleared by cardiology. Subjective - Subjective Date of service: 12/16/20 (Awaiting Cardiology recommendations) Principal diagnosis: 8 day s/p repeat c/s PP PreE MGSO4 Patient reports: appetite normal, voiding normally, flatus, ambulating normally, other (Patient with c/o a headache.) : doing well Objective - Vital Signs Latest vital signs: Vital Signs Temp Pulse Resp BP BP Pulse Ox 12/16/20 05:32 18 12/16/20 04:48 98.2 F 86 20 123/83 100 12/16/20 00:17 18 12/15/20 23:24 98.8 F 76 20 140/82 100 12/15/20 22:30 63 133/78 12/15/20 20:03 59 L 134/72 12/15/20 20:02 98.2 F 63 20 161/91 99 12/15/20 18:46 62 16 136/62 99 12/15/20 16:17 99.1 F 56 L 18 171/87 99 12/15/20 14:51 57 L 16 160/82 99 12/15/20 12:07 98.7 F 55 L 20 151/71 98 12/15/20 12:05 164/79 12/15/20 12:00 184/89 12/15/20 09:50 161/79 Intake and Output 12/15/20 12/16/20 12/16/20 22:59 06:59 14:59 Intake Total 1040 240 Balance 1040 240 Intake: Oral 560 240 Intake, Free Water 480 Other: Total, Intake Amount 200 240 # Voids Void 1 3 - Exam Narrative Exam: Pt states that she has a MAYO that she rates a 10/10. MAYO is concentrated mostly in her forehead/sinus region. We discussed that this may be d/t Procardia administration and change in blood pressure medication, or sinus congestion. Will order Maisha PO daily. Pt had Extra Strength Tylenol at 0530 that she states is not helping at this time. She has also had Motrin 800 mg PO. She has Percocet ordered. Spoke with RN, will administer Percocet when due. Will re- evaluate after pain medication. Pt denies chest pain, shortness of breath, and upper abdominal pain. We discussed that the OB team is awaiting cardiology recommendations before patient can be discharged home. Breasts: Present: deferred Cardiovascular: Present: Regular rate Lungs: Present: Normal air movement Abdomen: Present: normal appearance, soft Vulva: both: normal Uterus: Present: normal Extremities: Present: normal Deep Tendon Reflex Grade: Normal +2 Incision: Present: normal, dry, intact, other (Incision healing well. No s/sx of of infection. No drainage noted. ) - Labs Labs: Abnormal lab results 12/15/20 Range/Units 15:26 Total Creatine Kinase 169 H (30-135) units/L
[2020-12-16] MEDS: oxyCODONE /ACETAMINOPHEN 5-325MG TAB PO PRN ×2 (08:39→16:20)
[2020-12-16] MEDS ORDERED: LORATADINE/PSEUDOEPHEDRINE 5-120 MG TAB 12HR PO SCH (10:00)
[2020-12-16] MEDS ORDERED: CETIRIZINE 10 MG TAB PO SCH (10:00)
[2020-12-16] MEDS: NIFEdipine XL 90 MG TAB PO SCH (10:02)
[2020-12-16] MEDS: hydrALAZINE 25 MG TAB PO SCH ×2 (10:02→22:43)
[2020-12-16] MEDS: DOCUSATE SODIUM 100 MG CAP PO PRN (10:02)
[2020-12-16] MEDS: FAMOTIDINE 20 MG TAB PO SCH ×2 (10:02→22:43)
[2020-12-16] MEDS: PRENATAL VIT27-FE FUMARATE-FOLIC ACID VIT TAB PO SCH (10:02)
--- NOTE | 2020-12-16 10:28 | Consultation ---
History of Present Illness Consult date: 12/16/20 Requesting physician: CASPER MALHOTRA Consult reason: hypertension History of present illness: The pt is a 30 YO post- female with a past medical history of preeclampsia and HTN. She is previously unknown to our practice. She presented on 12/13 with c/o headache and elevated BPs. Of note, is s/p section 12/09/20, was d/c home 12-11-20 and states she has not been feeling well since discharge - has been having headache, elevated BPs, intermittent chest pressure and generalized fatigue. She denies SOB, palpitations, n/v, diaphoresis, dizziness or syncope. Pt denies any known prior history of CAD, AMI or HF. She denies any prior cardiac w/u. Past History Past Medical History: hypertension Medications and Allergies Allergies Allergy/AdvReac Type Severity Reaction Status Date / Time No Known Allergies Allergy Unverified 06/17/19 16:10 Home Medications Medication Instructions Recorded Confirmed Last Taken Type Ibuprofen [Motrin 800 MG tab] 800 mg PO TID #30 tablet 06/17/19 12/14/20 12/08/20 Rx Docusate Sodium [Colace] 100 mg PO BID PRN #60 capsule 12/09/20 12/14/20 Unknown Rx Ferrous Sulfate [Feosol 325 MG tab] 325 mg PO QDAY #60 tablet 12/09/20 12/14/20 Unknown Rx Ibuprofen [Motrin 800 MG tab] 800 mg PO Q8HR PRN #30 tablet 12/09/20 12/14/20 Unknown Rx Lidocain2.5%/Prilocai2.5% [Emla] 2 gm TP ONCE #1 tube 12/09/20 12/14/20 Unknown Rx oxyCODONE /ACETAMINOPHEN [Percocet 1 tab PO Q4HR #30 tab 12/09/20 12/14/20 Unknown Rx 5/325] labetaloL [Labetalol 200mg TAB] 200 mg PO BID #60 tablet 12/15/20 Unknown Rx Active Meds: Active Medications Acetaminophen (Acetaminophen 500 Mg Tab) 1,000 mg PO Q6H PRN PRN Reason: Pain MILD(1-3)/Fever >100.5/MAYO Last Admin: 12/16/20 05:32 Dose: 1,000 mg Documented by: Cetirizine HCl (Cetirizine 10 Mg Tab) 10 mg PO QDAY [facility] Docusate Sodium (Docusate Sodium 100 Mg Cap) 100 mg PO Q12H PRN PRN Reason: Constipation Last Admin: 12/15/20 19:37 Dose: 100 mg Documented by: Famotidine (Famotidine 20 Mg Tab) 20 mg PO BID [facility] Last Admin: 12/15/20 22:29 Dose: Not Given Documented by: Hydralazine HCl (Hydralazine 20 Mg/1 Ml Inj) 10 mg IV ONCE PRN PRN Reason: Hypertension Last Admin: 12/13/20 15:03 Dose: 10 mg Documented by: Hydralazine HCl (Hydralazine 25 Mg Tab) 50 mg PO BID [facility] Last Admin: 12/15/20 22:30 Dose: 50 mg Documented by: Ibuprofen (Ibuprofen 800 Mg Tab) 800 mg PO Q8H PRN PRN Reason: Pain, Mild (1-3) Last Admin: 12/15/20 06:34 Dose: 800 mg Documented by: Multivitamins/Iron/Calcium ( [id number] Fumarate-Folic Acid Vit Tab) 1 each PO QDAY [facility] Last Admin: 12/15/20 10:07 Dose: 1 each Documented by: Nifedipine (Nifedipine Xl 90 Mg Tab) 90 mg PO QDAY [facility] Last Admin: 12/15/20 19:09 Dose: Not Given Documented by: Oxycodone/Acetaminophen (Oxycodone /Acetaminophen 5-325mg Tab) 2 tab PO Q6H PRN PRN Reason: Pain, Moderate (4-6) Last Admin: 12/14/20 17:38 Dose: 2 tab Documented by: Review of Systems Constitutional: no fever, no chills, no sweats Ears, nose, mouth and throat: no ear pain, no nose pain, no sinus pressure, no sinus pain Cardiovascular: chest pain, high blood pressure, no orthopnea, no palpitations, no rapid/irregular heart beat, no edema, no syncope, no lightheadedness, no shortness of breath, no dyspnea on exertion Respiratory: no cough, no shortness of breath, no dyspnea on exertion, no congestion, no wheezing, no pain on inspiration Gastrointestinal: no abdominal pain, no nausea, no vomiting, no diarrhea, no constipation, no change in bowel habits Genitourinary Female: no pelvic pain, no flank pain, no dysuria, no urinary marcella quency, no urgency Musculoskeletal: no neck stiffness, no neck pain, no shooting arm pain, no arm numbness/tingling, no low back pain, no shooting leg pain Integumentary: no rash, no pruritis, no redness, no sores, no wounds Neurological: headaches, no head injury, no paralysis, no parathesias, no numbness, no tingling, no seizures, no syncope Psychiatric: no anxiety Endocrine: no cold intolerance, no heat intolerance Hematologic/Lymphatic: no easy bruising Allergic/Immunologic: no urticaria Physical Examination Vital Signs Temp Pulse Resp BP Pulse Ox 98.9 F 70 20 167/87 99 12/13/20 10:27 12/13/20 10:27 12/13/20 10:27 12/13/20 10:27 12/13/20 10:27 General appearance: no acute distress HEENT: Positive: PERRL, Normocephaly, Mucus Membranes Moist Neck: Positive: neck supple, trachea midline Cardiac: Positive: Reg Rate and Rhythm, S1/S2 Lungs: Positive: Decreased Breath Sounds Neuro: Positive: Grossly Intact Abdomen: Negative: Tender Skin: Negative: Rash Incision: Incision Site ( ) Musculoskeletal: No Pain Extremities: Absent: edema Results 12/13/20 10:59 12/13/20 10:59 Cardiac Enzymes 12/15/20 Range/Units 15:26 CK-MB (CK-2) 2.4 (0.0-4.0) ng/mL - Imaging and Cardiology Echo: pending EKG: report reviewed, image reviewed EKG interpretations - Telemetry EKG Rhythm: Sinus Rhythm - EKG Sinus rhythms and dysrhythmias: sinus rhythm Assessment and Plan Nifedipine and hydralazine was initiated overnight - BPs improved today. Of note, pt does intend to breast feed. Pt reports she is feeling better today, no current cardiac complaints. tte reviewed - normal EF, no significant abnormalities. Pt may discharge from cardiology standpoint on present cardiac regimen. Recommend follow up in our office with Dr. Hobson within 2 weeks ([phone]). The patient has been seen in conjunction with Dr. Hobson who agrees with the assessment and plan of care. - Patient Problems (1) Uncontrolled hypertension Current Visit: Yes Status: Acute (2) Chest pressure Current Visit: Yes Status: Acute Plan to address problem: Currently resolved AMI ruled out (3) S/P Current Visit: Yes Status: Acute (4) History of pre-eclampsia Current Visit: Yes Status: Acute
--- NOTE | 2020-12-16 20:41 | Discharge Summary ---
Providers - Providers Date of Admission: 12/13/20 13:09 Attending physician: THALIA MORALES 12/15/20 15:43 Consult to Cardiology [CONS] Urgent Consulting Provider: DARIAN COULTER Reason For Exam: Bradycardia, pre eclampsia, Primary care physician: NIKHIL ALAS MD Hospitalization Condition at discharge: Stable Disposition: DC-30 STILL A PATIENT Plan - Discharge Medications Prescriptions: labetaloL [Labetalol 200mg TAB] 200 mg PO BID #60 tablet - Provider Discharge Summary Additional instructions: [] Smoking cessation referral if applicable(refer to patient education folder for contact #) [] Refer to [facility]'s [facility] Booklet Call your doctor immediately for: * Fever > 100.5 * Heavy vaginal bleeding ( >1 pad per hour) * Severe persistent headache * Shortness of breath * Reddened, hot, painful area to leg or breast * Drainage or odor from incision. * Keep incision clean and dry at all times and follow doctor's instructions regarding bathing/showering - Follow up plan Follow up: PRIMARY CARE, [Primary Care Provider] - 3-5 Days Forms: [facility] Discharge Summary
--- NOTE | 2020-12-16 20:58 | Event Note ---
Date: 12/16/20 (MAYO) RN called to state that patient had a MAYO. Upon entering room, patient is sitting in chair next to bed. Pt states that her MAYO is 15/10 and concentrated in the frontal and occipital regions. States that she has a history of migraines and takes medication, but she can not remember the name of the medication. Spoke with Dr. Mack. Will order CT scan, medication for MAYO pain. Pt states that she does not want Percocet for pain. Will try Benadryl, Reglan, and Extra Strength Tylenol. Explained that patient will need CT and IV placement. Pt verbalized understanding.
[2020-12-16] MEDS ORDERED: METOCLOPRAMIDE 10 MG TAB PO ONE (20:59)
[2020-12-16] MEDS ORDERED: diphenhydrAMINE 50 MG CAP PO ONE (21:00)
--- NOTE | 2020-12-16 22:14 | Cat Scan Report ---
CT HEAD WITHOUT CONTRAST INDICATION / CLINICAL INFORMATION: Headache. TECHNIQUE: All CT scans at this location are performed using CT dose reduction for ALARA by means of automated e xposure control. COMPARISON: Head CT 12/13/2020 FINDINGS: HEMORRHAGE: No evidence of intracranial hemorrhage or extra-axial fluid collection. EXTRA-AXIAL SPACES: Cortical sulci, sylvian fissures and basilar cisterns have an unremarkable appear ance. VENTRICULAR SYSTEM: The third and lateral ventricles are of normal size and configuration. CEREBRAL PARENCHYMA: No areas of abnormal brain parenchymal attenuation are identified. There is no i ndication of recent infarction. MIDLINE SHIFT OR HERNIATION: There is no mass effect. CEREBELLUM / BRAINSTEM: Brainstem and cerebellum have an unremarkable appearance. MIDLINE STRUCTURES:No abnormalities of the pituitary gland or pineal region are identified. INTRACRANIAL VESSELS:No abnormalities are identified on this noncontrast head CT. ORBITS: visualized portions of the orbits have an unremarkable appearance. SOFT TISSUES of HEAD: No significant abnormality. CALVARIUM: Evaluation of bone windows reveals no abnormalities. PARANASAL SINUSES / MASTOID AIR CELLS: Mucosal thickening is present within several ethmoid air cells as well as in the left sphenoid sinus. Similar findings were present on recent previous study. IMPRESSION: 1. No acute intracranial abnormality. 2. Mild mucosal disease within several ethmoid air cells. 3. No significant interval change. Recent previous study dated 12/13/2020 Signer Name: Cresencio Adamson MD Signed: 12/16/2020 10:09 PM Workstation Name: [id number]
--- NOTE | 2020-12-16 22:35 | Discharge Summary ---
Providers - Providers Date of Admission: 12/13/20 13:09 Attending physician: THALIA MORALES 12/15/20 15:43 Consult to Cardiology [CONS] Urgent Consulting Provider: DARIAN COULTER Reason For Exam: Bradycardia, pre eclampsia, Primary care physician: [facility]IDENT[facility]IVER Hospitalization Reason for admission: other (readmit for PP preclampsia) Hospital course: This a 30 year-old female s/p C/S w/ BTL on 12/09/20 who presented to ED c/o Chest pressure and MAYO. She was need to have elevated BP's and the evaluation for Chest pressure and MAYO were normal therefore she was diagnosed with PP preclampsia and admitted to L&D and started on MgSO4 for seizure prophylaxis. Her hospital course was significant for persist MAYO that she described as a migraine. She also had a Cardiology evaluation for bradycardia. She completed the MgSO4 therapy but was noted to have persistent elevated BP's and bradycardia. Cardiology was consulted. BP's meds were adjusted and the cardiac evaluation was normal. She continued to have a severe migraine and had another Head CT scan that was unremarkable. After she CT scan she states her Migraine resolved and she desired discharge home. Condition at discharge: Good Disposition: DC-01 TO HOME OR SELFCARE - Discharge Diagnoses (1) Classic migraine Status: Acute (2) Pre-eclampsia, Status: Acute (3) S/P Status: Acute Plan - Discharge Medications Prescriptions: hydrALAZINE [Apresoline TAB] 50 mg PO BID #30 tablet NIFEdipine XL [Procardia Xl] 90 mg PO QDAY #30 tablet - Provider Discharge Summary Activity: no sex for 6 weeks, no heavy lifting 4 weeks, no strenuous exercise Diet: other (low sodium) Additional instructions: [] Smoking cessation referral if applicable(refer to patient education folder for contact #) [] Refer to [facility] Booklet Call your doctor immediately for: * Fever > 100.5 * Heavy vaginal bleeding ( >1 pad per hour) * Severe persistent headache * Shortness of breath * Reddened, hot, painful area to leg or breast * Drainage or odor from incision. * Keep incision clean and dry at all times and follow doctor's instructions regarding bathing/showering - Follow up plan Follow up: PRIMARY CARE, [Primary Care Provider] - 3-5 Days SANTIAGO CONNER MD [Staff Physician] - 12/19/20 10:00 am ([place]) Forms: C Discharge Summary
[2020-12-16 22:43] VITALS: BP 132/88
== END 2020-12-17 | disposition home or self-care (01) | DRG 776 ==
LOC: ED 10:21 → LD 13:09 → OBSVTOIN 13:09 → OB 12-14 16:13
PROVIDERS: ADMIT Obstetrics & Gynecology; ATTEND Obstetrics & Gynecology
DX: O11.5 Pre-existing hypertension with pre-eclampsia, complicating the puerperium (principal); O99.355 Diseases of the nervous system complicating the puerperium; O98.33 Other infections with a predominantly sexual mode of transmission complicating the puerperium; G43.109 Migraine with aura, not intractable, without status migrainosus; A60.03 Herpesviral cervicitis; O99.53 Diseases of the respiratory system complicating the puerperium; J45.909 Unspecified asthma, uncomplicated; Z20.822 Contact with and (suspected) exposure to COVID-19
CPT/HCPCS: 36415; 70450; 71046; 71275; 80053; 81001; 82550; 82553; 83735; 83880; 84484; 85025; 93005; 93306; G0378; J0360; J1885; J3475; J7120; Q9967; U0003